=== PATIENT | female | born 1970 | race Caucasian/White ===

== ENCOUNTER 2016-09-29 11:24 | Observation (INO) | payer OTHER ==
[~2016-09-29] VITALS: Ht 162.6 cm; Wt 104.6 kg
--- NOTE | 2016-09-29 14:24 | DIAGNOSTIC IMAGING REPORT ---
PROCEDURE: XR CHEST 1 VIEW INDICATION: CHEST PAIN TECHNIQUE: Single view chest. 1204 hours COMPARISON: None. FINDINGS: Moderately enlarged heart with intact right-sided single lead subclavian pacemaker. No significant central vascular congestion. Thickening of the right minor fissure. Mild peribronchial thickening scattered bilaterally. No dense consolidation, effusion, or pneumothorax. Intact osseous structures. IMPRESSION: 1. Enlarged heart with pacemaker but no signs of acute CHF. 2. Mild peribronchial thickening, nonspecific. Correlate clinically.
--- NOTE | 2016-09-29 15:06 | ED CLINICAL REPORT ---
Clinical Report - Physicians/Mid Levels [facility] [address] [place] [address] 09/29/2016 11:28 Patient: CAREY HANSON Time Seen: 1130. Arrived- By ambulance. Historian- patient. HISTORY OF PRESENT ILLNESS Chief Complaint: CHEST PAIN. It is described as pressure and it is described as located in the left chest area and radiating to the left arm. At its maximum, severity described as severe. When seen in the E.D., severity described as severe. Modifying factors- worsened by exertion. Not relieved by anything. This started past few days and is still present. It was abrupt in onset and has been constant but is not gone now. Onset during rest. No nausea or vomiting. (no cough). She has had difficulty breathing and has experienced diaphoresis. No additional chest pain. Similar symptoms previously: Once. ( states she had a pace maker placed). Recent medical care: Not recently seen/assessed. REVIEW OF SYSTEMS No fever, chills, abdominal pain, black stools or difficulty with urination. No skin rash or bloody stools. All systems otherwise negative, except as recorded above. PAST HISTORY See nurses notes. Risk factors for DVT/pulmonary embolism- prior history of pulmonary embolism. Medications: Unknown. Allergies: Penicillins. SOCIAL HISTORY Smoker- current status unknown. No alcohol use or drug use. No recent travel. Is a local resident. ADDITIONAL NOTES The nursing notes have been reviewed. PHYSICAL EXAM Vital Signs: Oxygen saturation normal. Appearance: Alert. Oriented X3. Patient in mild distress. Eyes: Pupils equal, round and reactive to light. Eyes normal inspection. ENT: Ears normal. Nose normal. Pharynx normal. Neck: Normal inspection. Neck supple. No JVD. CVS: Normal heart rate and rhythm. Heart sounds normal. Pulses normal. Respiratory: No respiratory distress. Breath sounds normal. Chest nontender. No rales, rhonchi or wheezes. Abdomen: Soft and nontender. Bowel sounds normal. Skin: Skin warm and dry. Normal skin color. No rash. Normal skin turgor. Extremities: Extremities exhibit normal ROM. No lower extremity edema. Neuro: Oriented X 3. No motor deficit. No sensory deficit. LABS, X-RAYS, AND EKG EKG: Normal sinus rhythm. Rate: 87. Normal P waves. Normal SUSY. Normal QRS complex. Normal axis. Normal QT and QTc. Non-specific T wave inversion in lead I, aVL and V6. No ST elevation or depression. Prior EKG unavailable. The study has been interpreted contemporaneously by me. The study has been independently viewed by me. Artifact present. Laboratory Tests: UA-Culture if indicated: (YANETH: 09/29/2016 11:45) ( [facility] 09/29/2016 11:58) Final results Test Result Flag Units (Reference) URINE COLOR YELLOW URINE APPEARANCE CLEAR URINE GLUCOSE NEGATIVE (NEGATIVE) URINE BILIRUBIN NEGATIVE (NEGATIVE) URINE KETONE NEGATIVE (NEGATIVE) URINE SPECIFIC GRAVITY <= 1.005 L (1.010-1.030) URINE PH 6.0 (5.0-8.0) URINE PROTEIN NEGATIVE (NEGATIVE) URINE UROBILINOGEN 0.2 EU/dL (0.2-1.0) URINE NITRITE NEGATIVE (NEGATIVE) URINE BLOOD TRACE-INTACT (NEGATIVE) URINE LEUK ESTERASE NEGATIVE (NEGATIVE) URINE RBC RARE rbc/hpf (0-1) URINE WBC RARE wbc/hpf (0-1) URINE EPITHELIAL CELLS 0-1 EPI/hpf (0-5) URINE BACTERIA NONE SEEN (NONE SEEN) URINE COMMENT CULT NOT INDICATED URINE CULTURES ARE SET-UP BASED ON THE FOLLOWING CRITERIA:POSITIVE NITRITEPOSITIVE LEUKOCYTE ESTERASEGREATER THAN 10 WHITE BLOOD CELLSMODERATE (2+) OR GREATER BACTERIA Urine: (YANETH: 09/29/2016 11:45) ( [facility] 09/29/2016 11:54) Final results Test Result Flag Units (Reference) URINE NEGATIVE CBC w Diff: (YANETH: 09/29/2016 11:55) ( [facility] 09/29/2016 13:33) Final results Test Result Flag Units (Reference) WHITE BLOOD COUNT 7.1 K/uL (4.5-11.5) RED BLOOD COUNT 5.32 H M/uL (4.00-5.20) HEMOGLOBIN 12.1 gm/dL (12.0-16.0) HEMATOCRIT 38.5 % (36.0-46.0) MEAN CELL VOLUME 72 L fL (80-100) MEAN CORPUSCULAR HGB 23 L pg (26-34) MEAN CORPUSCULAR HGB CONC 31 g/dL (31-37) RED CELL DISTRIBUTION WIDTH 18.1 H % (11.6-14.8) PLATELET COUNT 268 K/uL (150-400) NEUTROPHIL % 71.0 % (50-75) LYMPH % 20.3 L % (25-40) MONO % 5.7 % (3-14) EOSINOPHIL % 1.7 % (0-4) BASOPHIL % 1.3 % (0-2) RBC MORPHOLOGY 2+ ANISOCYTOSIS~~2+ HYPOCHROMASIA~~RARE POLYCHROMASIA PT with INR: (YANETH: 09/29/2016 11:55) ( MsgRcvd 09/29/2016 12:12) Final results Test Result Flag Units (Reference) INR 0.9 (0.8-1.2) Low Intensity Therapy: INR 1.5-2.0 PT range 18.5-23.1Mod.Intensity Therapy: INR 2.0-3.0 PT range 23.1-31.5High Intensity Therapy: INR 2.5-3.5 PT range 27.4-35.5High Intensity Therapy 2: INR 3.0-4.0 PT range 31.5-39.3 D-DIMER QUANTITATIVE 0.42 ug/mLFEU (0.27-0.52) The primary value of this quantitative assay relates toits negative predictive value (i.e. exclusion) of pulmonaryembolism/deep vein thrombosis/DIC.Elevated levels of d-dimer may also occur with:, age, cancer, inflammation, liver disease,post-op, infection, hematoma, coronary disease, peripheralarteriopathy, bleeding disorders and thrombolytic treatment.Results should be correlated with other clinical andradiological data.Testing Methodology: Latex Immunoassay Urine Drug Screen: (YANETH: 09/29/2016 11:45) ( [facility] 09/29/2016 14:00) Final results Test Result Flag Units (Reference) AMPHETAMINE/METHAMPHETAMINE NEGATIVE (NEGATIVE) BARBITURATE NEGATIVE (NEGATIVE) BENZODIAZEPINE NEGATIVE (NEGATIVE) CANNABINOID POSITIVE H (NEGATIVE) COCAINE NEGATIVE (NEGATIVE) ECSTASY NEGATIVE (NEGATIVE) METHADONE NEGATIVE (NEGATIVE) OPIATE NEGATIVE (NEGATIVE) The urine drug screen is a qualitative screening test fordrug overdose and abuse. All screen results should beconsidered as presumptive.Drugs screened for are as follows:BenzodiazepinesCocaineAmphetamines/MetamphetaminesTHC (Tetrahydrocannabinol)OpiatesBarbituratesEcstasyMethadonePositive results are unconfirmed. For confirmation, notifythe lab for the specimen to be sent to the reference lab.All confirmations must be performed by a differentmethodology.The ingestion of natural herbal and plant productscontaining Ephedra/Ephedra metabolites can produce in urineone or more substances capable of cross reacting withamphetamine/methamphetamine immunoassays. These testsprovide a preliminary result only. A more specificalternative chemical method must be used to obtain aconfirmed analytical result. Troponin-I: (YANETH: 09/29/2016 14:00) ( [facility] 09/29/2016 14:32) Final results Test Result Flag Units (Reference) TROPONIN I 0.06 ng/mL (0.00-1.5) TROPONIN REFERENCE RANGE:<0.1 NEGATIVE0.1-1.5 INDETERMINANT>1.5 POSITIVE BNP: (YANETH: 09/29/2016 11:55) ( [facility] 09/29/2016 12:29) Final results Test Result Flag Units (Reference) B-TYPE NATRIURETIC PEPTIDE 663 H pg/ml (5-100) CMP: (YANETH: 09/29/2016 11:55) ( [facility] 09/29/2016 12:28) Final results Test Result Flag Units (Reference) GLUCOSE 110 mg/dL (70-110) BUN 12 mg/dL (7-18) CREATININE 1.0 mg/dL (0.6-1.3) Estimated GFR >60 mL/min Estimated GFR- >60 mL/min Note: Persistent reduction over 3 months in eGFR<60 mL/min/1.73 m2 defines CKD. Patients with eGFR values>=60 mL/min/1.73 m2 may also have CKD if evidence ofpersistent proteinuria. Additional information may be foundat [email or web address].org. SODIUM 137 mmol/L (136-145) POTASSIUM 4.2 mmol/L (3.5-5.1) CHLORIDE 102 mmol/L (98-107) CARBON DIOXIDE 26 mmol/L (21-32) CALCIUM 8.7 mg/dL (8.5-10.1) TOTAL PROTEIN 7.8 g/dL (6.4-8.2) ALBUMIN 3.5 g/dL (3.3-5.0) BILIRUBIN, TOTAL 0.4 mg/dL (0.0-1.0) ALKALINE PHOSPHATASE 123 H U/L (46-116) AST (SGOT) 18 U/L (15-37) ALT (SGPT) 19 U/L (12-78) TROPONIN I 0.05 ng/mL (0.00-1.5) TROPONIN REFERENCE RANGE:<0.1 NEGATIVE0.1-1.5 INDETERMINANT>1.5 POSITIVE . PROGRESS AND PROCEDURES Course of Care: Patient is a pleasant 46 show female presenting for evaluation of chest pain. Patient is a [employer] past medical history. At this time differential diagnosis is broad. Laboratory studies including EKG, chest x-ray, and urinalysis has been ordered. Patient is agreeable to the treatment plan. All questions have been answered. Also interrogate patient's cardiac device. Patient states that her cardiac device had one off earlier today. Patient had reported that she had cardiology follow-up at [facility]. When speaking with cardiology over at [facility], patient has not established care down there. Patient did havecardiac studies done including a Lexiscan which showed reversible anterior wall defect. This was ordered by the hospitalist. Unclear where patient had gotten cardiology follow-up. We were able to discover the patient had most of her cardiac here in [place]. Patient also had a stent placed there as well Including her cardiac device. Laboratory studies were significant for the findings above. Patient with normal d-dimer. Troponin is also normal. Patient with EKG does not show any signs of acute ischemia. The patient's cardiac device was interrogated. Patient had no significant recent events. Repeat troponin has been ordered as the patient's pain changed less than 8 hours ago. Repeat troponin is also noted to be normal. Because of the patient's unremarkable troponin however elevated BNP and findings of possible heart failure, patient will be admitted. Patient also with hypertensive emergency. Nitropaste was provided as well as IV metoprolol. Patient also reporting headache after the Nitropaste was given. Patient was treated for the headache with Dilaudid. Patient reports that the headache is similar to her headaches in the past. No focal neurological examinations. No concern for space-occupying lesion, subarachnoid hemorrhage, or more sinister etiology for the headache. discussed care with the hospitalist who will accept the patient. During patient's stay here in the emergency department, no available nursing staff was available for the patient. Patient was to be admitted to the intensive care unit. A nurse was available at around 7 PM this evening. Prior to patient's departure from the emergency department she is noted to be resting in bed and in no acute distress. Patient is agreeable to the treatment plan. All questions have been answered. Discussed with patient her diagnosis and plan of care. Alphonse from [email or web address]. Told RN that she "it wouldn't show anything." Clarified with rep about what exactly does this cardiac device do. States it won't record unless the heart rate goes over 180, otherwise it wouldn't show anything. patient reports she felt it go off and I would be concerned for a serious cardiac event. It is helpful to have that information when speaking with cardiology. Spoke with rep at 11:50am. States she should be here in less than an hour. Critical care performed (65 minutes). Time is exclusive of separately billable procedures. Time includes: direct patient care, patient reassessment, coordination of patient care, interpretation of data (laboratory data), review of patient's medical records, medical consultation and documentation of patient care. Disposition: Admitted to the Critical Care Unit. CLINICAL IMPRESSION hypertensive emergency, acute CHF exacerbation Chest pain, acute frontal headache, acute. (Electronically signed by Felipe Shelley Dr. 10/01/2016 15:03)
--- NOTE | 2016-09-29 15:06 | ED ORDER SUMMARY ---
..... Patient: CAREY HANSON [facility]: [id number] [place] [address] 46y, F Registration Date/Time: 09/29/2016 ORDER SHEET Weight: 99.7 kg (stated) Allergies: Penicillins GENERAL ORDERS: Chest 1V Urgent (11:34 09/29/2016 [place]) (Ack 11:53 WIouse ER Tech1) (12:03 KWilliams R.N.) (12:04 Ryder) Caseworker Intake (Continuous) (CP) (11:34 09/29/2016 [place]) (11:42 KWuna R.N.) CBC w Diff Urgent (11:09/29/2016 [place]) (Ack 11:53 WIouse ER Tech1) (12:03 Baldevams R.N.) CMP Urgent (11:09/29/2016 [place]) (Ack 11:53 WIouse ER Tech1) (12:03 KWilliams R.N.) UA-Culture if indicated Urgent (11:35 09/29/2016 [place]) (Ack 11:53 WIouse ER Tech1) (12:03 NATALEEillicole R.N.) PT with INR Urgent (11:09/29/2016 [place]) (Ack 11:53 WIouse ER Tech1) (12:03 Nancy R.N.) D-Dimer Urgent (11:35 09/29/2016 [place]) (Ack 11:53 WIouse ER Tech1) (12:03 KWilliams R.N.) Urine Urgent (11:35 09/29/2016 [place]) (Ack 11:53 WIouse ER Tech1) (12:03 KWilliams R.N.) Troponin-I Urgent (11:09/29/2016 [place]) (Ack 11:53 WIouse ER Tech1) (12:03 KWilliams R.N.) BNP Urgent (11:09/29/2016 [place]) (Ack 11:53 WIouse ER Tech1) (12:03 KWilliams R.NRosy) Pulse oximeter (11:35 09/29/2016 [place]) (11:42 Nancy RRosyN.) EKG - ER Stat (11:35 09/29/2016 [place]) (11:40 OHernandez) - (interogate pace maker) (11:42 09/29/2016 [place]) (Ack 12:01 WIouse ER Tech1) (13:06 Samreen R.NRosy) - (medical records from [facility]) (11:42 09/29/2016 [place]) (Ack 12:01 NHouse ER Tech1) (14:10 NHouse ER Tech1) Troponin-I (redraw at 1355) Urgent (12:32 09/29/2016 [place]) (Ack 12:35 WIouse ER Tech1) (14:10 WIouse ER Tech1) Urine Drug Screen Urgent (13:40 09/29/2016 [place]) (Ack 14:10 WIouse ER Tech1) (14:11 WIouse ER Tech1) MEDICATION ORDERS: Aspirin PO 243 mg (Do not crush or chew, NOW) (11:35 09/29/2016 [place]) (12:04 Nancy R.N.) NitroGLYCERIN Paste Topical 1 in. (NOW, to CW) (12:11 09/29/2016 [place]) (12:18 Samreen R.N.) Lovenox Subcut 80 mg (HIGH ALERT MEDICATION, NOW) (15:04 09/29/2016 [place]) (15:16 Samreen R.N.) IV FLUIDS: Morphine IV 4 mg (HIGH ALERT MEDICATION, NOW) (11:35 09/29/2016 [place]) (12:04 Nancy R.N.) IV Saline Lock (11:35 09/29/2016 [place]) (12:04 Nancy R.N.) Morphine IV 4 mg (HIGH ALERT MEDICATION, NOW) (12:26 09/29/2016 [place]) (12:35 Samreen R.N.) Metoprolol IV 5 mg (HIGH ALERT MEDICATION, NOW) (12:58 09/29/2016 [place]) (13:06 KKnebel R.N.) Dilaudid IV 1 mg (HIGH ALERT MEDICATION, NOW) (13:33 09/29/2016 [place]) (Ack 14:25 KKnebel R.N.) Dilaudid IV 2 mg (HIGH ALERT MEDICATION, NOW) (14:05 09/29/2016 [place]) (14:25 HIRAMnebel R.N.) Lasix IV 20 mg (NOW) (15:02 09/29/2016 [place]) (15:16 KKnefrancis R.N.) Dilaudid IV 1 mg (HIGH ALERT MEDICATION, NOW) (17:29 09/29/2016 [place]) (17:58 Samreen R.N.) Zofran IV 4 mg (NOW) (18:09 09/29/2016 [place]) (18:12 MWinterer R.N.) Dilaudid IV 2 mg (HIGH ALERT MEDICATION, NOW) (18:37 09/29/2016 [place]) (Ack 18:43 MWinterer R.N.) (18:44 SReitz R.N.) ORDER SHEET NOTES: [Electronically signed by Jessica Delacruz R.N. (21:53 09/29/2016)] [Electronically signed by Felipe Shelley Dr. (15:03 10/01/2016)] [Electronically locked/signed by Jessica Delacruz R.N. (21:53 09/29/2016)]
--- NOTE | 2016-09-29 15:06 | ED ORDER SUMMARY ---
..... Patient: CAREY HANSON OrderSheet [facility] VisitID: [id number] [place] [address] 46y, F Registration Date/Time: 09/29/2016 ORDER SHEET Weight: 99.7 kg (stated) Allergies: Penicillins GENERAL ORDERS: Chest 1V Urgent (11:34 09/29/2016 [place]) (Ack 11:53 NVouse ER Tech1) (12:03 KWilliams R.N.) (12:04 Ryder) Bracelet And Brooch Maker (Continuous) (CP) (11:34 09/29/2016 [place]) (11:42 KWuna R.N.) CBC w Diff Urgent (11:09/29/2016 [place]) (Ack 11:53 NVouse ER Tech1) (12:03 Baldevams R.N.) CMP Urgent (11:09/29/2016 [place]) (Ack 11:53 NVouse ER Tech1) (12:03 KWilliams R.N.) UA-Culture if indicated Urgent (11:35 09/29/2016 [place]) (Ack 11:53 NVouse ER Tech1) (12:03 NATALEEillicole R.N.) PT with INR Urgent (11:09/29/2016 [place]) (Ack 11:53 NVouse ER Tech1) (12:03 Nancy R.N.) D-Dimer Urgent (11:35 09/29/2016 [place]) (Ack 11:53 NVouse ER Tech1) (12:03 KWilliams R.N.) Urine Urgent (11:35 09/29/2016 [place]) (Ack 11:53 NVouse ER Tech1) (12:03 KWilliams R.N.) Troponin-I Urgent (11:09/29/2016 [place]) (Ack 11:53 NVouse ER Tech1) (12:03 KWilliams R.N.) BNP Urgent (11:09/29/2016 [place]) (Ack 11:53 NVouse ER Tech1) (12:03 KWilliams R.NRosy) Pulse oximeter (11:35 09/29/2016 [place]) (11:42 Nancy RRosyN.) EKG - ER Stat (11:35 09/29/2016 [place]) (11:40 OHernandez) - (interogate pace maker) (11:42 09/29/2016 [place]) (Ack 12:01 NVouse ER Tech1) (13:06 Samreen R.NRosy) - (medical records from [facility]) (11:42 09/29/2016 [place]) (Ack 12:01 NHouse ER Tech1) (14:10 NHouse ER Tech1) Troponin-I (redraw at 1355) Urgent (12:32 09/29/2016 [place]) (Ack 12:35 NVouse ER Tech1) (14:10 NVouse ER Tech1) Urine Drug Screen Urgent (13:40 09/29/2016 [place]) (Ack 14:10 NVouse ER Tech1) (14:11 NVouse ER Tech1) MEDICATION ORDERS: Aspirin PO 243 mg (Do not crush or chew, NOW) (11:35 09/29/2016 [place]) (12:04 Nancy R.N.) NitroGLYCERIN Paste Topical 1 in. (NOW, to CW) (12:11 09/29/2016 [place]) (12:18 Samreen R.N.) Lovenox Subcut 80 mg (HIGH ALERT MEDICATION, NOW) (15:04 09/29/2016 [place]) (15:16 Samreen R.N.) IV FLUIDS: Morphine IV 4 mg (HIGH ALERT MEDICATION, NOW) (11:35 09/29/2016 [place]) (12:04 Nancy R.N.) IV Saline Lock (11:35 09/29/2016 [place]) (12:04 Nancy R.N.) Morphine IV 4 mg (HIGH ALERT MEDICATION, NOW) (12:26 09/29/2016 [place]) (12:35 Samreen R.N.) Metoprolol IV 5 mg (HIGH ALERT MEDICATION, NOW) (12:58 09/29/2016 [place]) (13:06 KKnebel R.N.) Dilaudid IV 1 mg (HIGH ALERT MEDICATION, NOW) (13:33 09/29/2016 [place]) (Ack 14:25 KKnebel R.N.) Dilaudid IV 2 mg (HIGH ALERT MEDICATION, NOW) (14:05 09/29/2016 [place]) (14:25 HIRAMnebel R.N.) Lasix IV 20 mg (NOW) (15:02 09/29/2016 [place]) (15:16 KKnefrancis R.N.) Dilaudid IV 1 mg (HIGH ALERT MEDICATION, NOW) (17:29 09/29/2016 [place]) (17:58 Samreen R.N.) Zofran IV 4 mg (NOW) (18:09 09/29/2016 [place]) (18:12 MWinterer R.N.) Dilaudid IV 2 mg (HIGH ALERT MEDICATION, NOW) (18:37 09/29/2016 [place]) (Ack 18:43 MWinterer R.N.) (18:44 SReitz R.N.) ORDER SHEET NOTES: [Electronically signed by Jessica Delacruz R.N. (21:53 09/29/2016)] [Electronically signed by Felipe Shelley Dr. (15:03 10/01/2016)] [Electronically locked/signed by Jessica Delacruz R.N. (21:53 09/29/2016)]
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
--- NOTE | 2016-09-29 18:35 | History & Physical Report ---
Information Source Information Source: Self Reliability: Poor History Chief Complaint chest pain and headache History of Present Illness Patient is a 46 year old female presenting with chest pain. Patient had been in her usual state of health when she remarked that she has been having a difficult time controlling her blood pressure. Patient states that she has had a difficult time controlling her blood pressure for the past 16 years and that she has a litanny of diseases secondary to the persistent elevated blood pressure. Patient states that she checks her blood pressure every morngin and that it ranges from anywhere to 170s systolic to 200s systolic. Ther pressure according to her never gets better throughout the day despite taking medication. Patient additionally claimed that her hypertension today was more unusual in that she had chest pain associated with it. Patient has no other symptoms at the time of admission. Patient is a very poor historian and countinually deviates from the conversation we were having. Patient is otherwise hemodynamically stable. Patient History 1. Hypertensive crisis 2. Elevated troponin I level 3. Hypertension 4. Asthma 5. Migraines 6. Seizure disorder Social History Patient is currently unumployed. She lives in a rental unit with her boyfriend. She currently smokes half pack a day for the past 23 years. She drinks alochol very rarely and smokes marijuana. Family History Family history was reviewed; no changes noted. Medications and Allergies Medications Home Medications [facility]/codone acetaminophen 5/325 carvedilol 25 mg tab bid tizanididine 2 mg tab q8 h trazadone 100 mg q tab qhs Furosmide 40 mg tab daily Lisinopril 40 mg daily Current Medications Sig/Jeannie Start time Last Medication Dose Route Stop Time Status Admin Furosemide 40 MG DAILY 09/30 899 AC 09/30 PO 0844 Hydrochlorothiazide 12.5 MG DAILY 09/30 899 AC 09/30 PO 1115 Lisinopril 40 MG DAILY 09/30 09 AC 09/30 PO 0844 Ketorolac 30 MG Q6H PRN 09/30 0015 AC Tromethamine IV Acetaminophen/ 1 TAB Q4H PRN 09/29 2100 AC Hydrocodone Bitart PO Trazodone HCl 100 MG QHS 09/29 2100 AC 09/29 PO 2214 Carvedilol 25 MG BIDWC 09/30 1999 AC 09/29 PO 2053 Acetaminophen 650 MG Q4H PRN 09/29 1845 AC 09/29 PO 2052 Allergies Coded Allergies: Penicillins (Severe, 09/29/16) Uncoded Allergies: OLIVES (Severe, Anaphylaxis 09/29/16) Review of Systems Constitutional Weakness, Malaise. Denies: Fever, Chills, Sweats, Other. Eyes Denies: Pain, Vision Change, Conjunctival Inflammation, Eyelid Inflammation, Redness, Other. ENT Denies: Ear Pain, Ear Discharge, Nose Pain, Nasal Discharge, Nasal Congestion, Mouth Pain, Mouth Swelling, Throat Pain, Throat Swelling, Other. Respiratory Denies: Cough, Dry, SOB w/exertion, Wheezing, Hemoptysis, Pleuritic Pain, Sputum , Other. Cardiovascular Chest Pain. Denies: Palpitations, Orthopnea, PND, Edema, Light-headedness, Other. Gastrointestinal Denies: Nausea, Vomiting, Abdominal Pain, Diarrhea, Constipation, Melena, Hematochezia, Other. Genitourinary Denies: Dysuria, Frequency, Incontinence, Hematuria, Retention, Other. Musculoskeletal Back Pain. Denies: Neck Pain, Shoulder Pain, Arm Pain, Hand Pain, Leg Pain, Foot Pain, Other. Skin Denies: Rash, Lesions, Jaundice, Bruising, Other. Neurological Denies: Weakness, Numbness, Incoordination, Change in speech, Confusion, Seizures, Other. Physical Exam Vital Signs / I&Os Vital Signs Date Time Temp Pulse Resp B/P Pulse O2 O2 Flow FiO2 Ox Delivery Rate 09/30 1142 98.6 60 16 142/67 98 Room Air 06/05 0933 61 16 131/86 98 Room Air 06/05 0900 60 06/05 0800 60 15 140/94 94 Room Air 2.0 06/05 0727 97.7 63 18 122/73 99 Room Air 2.0 06/05 0721 2.0 06/05 0628 98.2 63 17 120/86 93 Room Air 06/05 0500 98.1 62 16 105/50 96 06/05 0400 66 16 126/82 93 06/05 0300 98.1 63 15 118/78 96 06/05 0200 98.1 73 17 108/63 92 Nasal 2.0 Cannula 06/05 0100 68 17 111/73 97 2.0 06/05 0000 70 17 139/85 95 Nasal 2.0 Cannula 06/04 2338 68 17 177/126 97 Nasal 2.0 Cannula 06/04 2300 98.8 85 18 180/118 92 Room Air 09/29 2200 98.8 80 17 157/84 96 Room Air 09/29 2100 97.7 81 17 170/94 91 Room Air 09/294 80 09/29 2030 2.0 09/29 2030 97.5 63 17 93 Room Air I&O 09/29 0800 09/29 1600 09/30 0000 Intake Total 0 Output Total 200 Balance -200 General Appearance Alert, Oriented X3, No acute distress HEENT Atraumatic, Moist mucous membranes Lungs Clear to auscultation Neck Supple, No JVD, No masses Cardiovascular Regular rate and rhythm, No murmurs, gallops, rubs Abdomen Soft, No tenderness Extremities No edema, Normal pulses, No tenderness Skin No Breakdown Neurological Normal gait, Normal speech, Sensation intact, Cranial nerves intact , No lateralizing signs Psych/Mental Status Mood normal LAB Results Laboratory Tests 09/29 09/29 06 1400 2150 0430 Chemistry Plasma Sodium (136 - 145 mmol/L) 137 Plasma Potassium (3.5 - 5.1 mmol/L) 4.6 Plasma Chloride (98 - 107 mmol/L) 100 CO2 (Enzymatic) (21 - 32 mmol/L) 29 BUN (7 - 18 mg/dL) 21 Creatinine (0.6 - 1.3 mg/dL) 1.2 Est GFR ( Amer) (mL/min) >60 Est GFR (Non-Af Amer) (mL/min) 51.40 Glucose (70 - 110 mg/dL) 97 Plasma Calcium (8.5 - 10.1 mg/dL) 8.9 Plasma Magnesium (1.8 - 2.4 mg/dL) 2.0 Total Bilirubin (0.0 - 1.0 mg/dL) 0.4 AST (15 - 37 U/L) 16 ALT (12 - 78 U/L) 18 Alkaline Phosphatase (46 - 116 U/L) 100 Troponin (0.00 - 1.5 ng/mL) 0.06 <0.05 Total Protein (6.4 - 8.2 g/dL) 6.6 Albumin (3.3 - 5.0 g/dL) 3.2 Hematology WBC (4.5 - 11.5 K/uL) 8.2 RBC (4.00 - 5.20 M/uL) 4.84 Hgb (12.0 - 16.0 gm/dL) 10.9 Hct (36.0 - 46.0 %) 35.4 MCV (80 - 100 fL) 73 MCH (26 - 34 pg) 23 RDW (11.6 - 14.8 %) 18.0 Neut % (Auto) (50 - 75 %) 71.0 Lymph % (Auto) (25 - 40 %) 20.8 Bennett % (Auto) (3 - 14 %) 6.6 Eos % (Auto) (0 - 4 %) 1.2 Baso % (Auto) (0 - 2 %) 0.4 Plt Count, EDTA (150 - 400 K/uL) 226 PUBS MCHC (31 - 37 g/dL) 31 Toxicology Valproic Acid (50.0 - 150.0 ug/mL) < 3.0 Microbiology Date/Time Procedure - Status Source Growth 09/29 2355 MRSA Screen - RECD NASAL Assessment and Plan Problem List 1. Hypertensive crisis Plan - pt presented with a blood pressure of 220/130 - pt was treated with beta blockers and luciana inhibitor - pt was placed on her home medication on the floor with hctz 12.6 mg - pts blood pressure throughout the night was very well controlled - will continue with this dose and consider discharging in the am 2. Elevated troponin I level Plan - pt has a minimally elevated troponin level - most likely from cardiac stress due to elevated blood pressure - will continue to trend - [facility] ekg was normal sinus rythym 3. Hypertension Plan - will resume home meds - refer to above 4. Asthma Plan - pt claims to have asthma however she is not placed on any treatments in the past - will continue to monitor breathing status 5. Seizure disorder Plan - pt cliams to have a seizure disorder - no pharmacy can verify the claims that she takes depakote for seizures - will hold and monitor further
[2016-09-29 21:00] VITALS: BP 170/94
[2016-09-29 22:00] VITALS: BP 157/84
[2016-09-29 23:00] VITALS: BP 180/118; BP 1801/11
[2016-09-29] MEDS ORDERED: DEPAKOTE ER250 MG PO ×2 (23:32→23:34)
[2016-09-29] MEDS ORDERED: VICODIN EQUIVAL1 TAB PO (23:35)
[2016-09-29 23:38] VITALS: BP 177/126
[2016-09-30] VITALS (11 sets, daily range): BP systolic 98–142; BP diastolic 50–94
[2016-09-30] MEDS ORDERED: HYDROCHLOROTH12.5 MG PO (12:34)
--- NOTE | 2016-09-30 12:35 | Provider's Discharge Care Plan ---
Problem, Goal, Plan Problem List 1. Hypertension Instructions: Take meds as directed, Stop smoking 2. Migraines Instructions: Take meds as directed 3. Seizure disorder
--- NOTE | 2016-09-30 12:35 | Provider's Discharge Care Plan ---
Problem, Goal, Plan Problem List 1. Hypertension Instructions: Take meds as directed, Stop smoking 2. Migraines Instructions: Take meds as directed 3. Seizure disorder
--- NOTE | 2016-10-01 15:04 | ED MED RECONCILIATION SUMMARY ---
Patient: CAREY HANSON Medication Reconciliation Report [facility] VisitID: [id number] [address] [place] [address] 46y, F Registration Date/Time: 09/29/2016 Weight: 99.7 kg Height/Length: 64 in. BMI: 37.8 ALLERGIES: Penicillins The patient's Home Medications are listed below: THE FOLLOWING MEDICATIONS NEED TO BE RECONCILED: AmLODIPine Besylate Oral (10 mg) 1 tablet, daily Asmanex 120 Metered Doses Inhalation Aspirin Oral (81 mg) 1 tablet Carvedilol 12.5 mg 2 tabs, 2x a day Diclofenac topical gel, 4x a day Divalproex Sodium Oral (250 mg), 3 tab in AM2 tas at lunch and2 tabs at night Docusate Sodium Oral (100 mg) 1 capsule, 2x daily Docusate Sodium Oral Furosemide 40mg , daily Iron Oral 150 mg take 2 tabs, daily Lidocaine film Lisinopril Oral 40 mg, daily Nitrostat Sublingual Omeprazole Oral 20 mg, 2x a day Ondansetrom 8mg , 3x a day Prazosin HCl Oral (2 mg) 1 capsule, at bedtime RisperiDONE Oral (1 mg) 1 tablet, 2x a day TiZANidine HCl Oral (2 mg) 1 tablet, 3x a day Trazodone 100mg, at bedtime Vicodin Oral 7.5 mg, q 4 hrs The source(s) of the original Home Medication information: patient The following Medications were given to the patient in the Emergency Department: Aspirin [PO] PO 243 mg, administered: 09/29/2016 11:49:00 AM Morphine [IVP] IVP 4 mg, administered: 09/29/2016 11:54:00 AM NITROGLYCERIN PASTE [TOPICAL] Topical 1 in., administered: 09/29/2016 12:18:00 PM Morphine [IVP] IVP 4 mg, administered: 09/29/2016 12:35:00 PM Metoprolol [IVP] IVP 5 mg, administered: 09/29/2016 1:06:00 PM Dilaudid [IVP] IVP 2 mg, administered: 09/29/2016 2:25:00 PM Lasix [IVP] IVP 20 mg, administered: 09/29/2016 3:16:00 PM Lovenox [Subcutaneous] Subcutaneous 80 mg, administered: 09/29/2016 3:16:00 PM Dilaudid [IVP] IVP 1 mg, administered: 09/29/2016 5:58:00 PM Zofran [IVP] IVP 4 mg, administered: 09/29/2016 6:12:00 PM Dilaudid [IVP] IVP 2 mg, administered: 09/29/2016 6:44:00 PM The following Medications were prescribed to the patient: None.
--- NOTE | 2016-10-01 15:04 | ED MAR SUMMARY ---
..... Medication Administration Record [facility] [address] [place] [address] Patient: CAREY HANSON Visit ID: [id number] 46y, F Weight: 99.7 kg Height/Length: 64 in BMI: 37.8 ALLERGIES: Penicillins Given 11:49 09/29/2016 Zaheer Pollock R.N. Medication Administered: ASPIRIN [PO], Dose: 243 mg Tablets PO. Medication Ordered: Aspirin PO 243 mg (Do not crush or chew, NOW). Given 11:54 09/29/2016 Zaheer Pollock R.N. Medication Administered: MORPHINE [IVP], Dose: 4 mg IVP over 2 minute(s), Site: #1 left AC. Medication Ordered: Morphine IV 4 mg (HIGH ALERT MEDICATION, NOW). Given 12:18 09/29/2016 Jessica Delacruz R.N. Medication Administered: NITROGLYCERIN PASTE [TOPICAL], Dose: 1 in. Paste Topical. Medication Ordered: NitroGLYCERIN Paste Topical 1 in. (NOW, to CW). Given 12:35 09/29/2016 Jessica Delacruz R.N. Medication Administered: MORPHINE [IVP], Dose: 4 mg IVP over 2 minute(s), Site: #1 left AC. Medication Ordered: Morphine IV 4 mg (HIGH ALERT MEDICATION, NOW). Given 13:06 09/29/2016 Jessica Delacruz R.N. Medication Administered: METOPROLOL [IVP] (METOPROLOL TARTRATE), Dose: 5 mg IVP over 4 minute(s), Site: #1 left AC. Medication Ordered: Metoprolol IV 5 mg (HIGH ALERT MEDICATION, NOW). Given 14:25 09/29/2016 Jessica Delacruz R.N. Medication Administered: DILAUDID [IVP] (HYDROMORPHONE HCL PF), Dose: 2 mg IVP over 2 minute(s), Site: #1 left AC. Medication Ordered: Dilaudid IV 2 mg (HIGH ALERT MEDICATION, NOW). Given 15:16 09/29/2016 Jessica Delacruz R.N. Medication Administered: LASIX [IVP], Dose: 20 mg IVP over 2 minute(s), Site: #1 left AC. Medication Ordered: Lasix IV 20 mg (NOW). Given 15:16 09/29/2016 Jessica Delacruz RRosyN. Medication Administered: LOVENOX [SUBCUTANEOUS] (ENOXAPARIN SODIUM), Dose: 80 mg Subcutaneous. Medication Ordered: Lovenox Subcut 80 mg (HIGH ALERT MEDICATION, NOW). Given 17:58 09/29/2016 Jessica Delacruz R.N. Medication Administered: DILAUDID [IVP] (HYDROMORPHONE HCL PF), Dose: 1 mg IVP over 2 minute(s), Site: #1 left AC. Medication Ordered: Dilaudid IV 1 mg (HIGH ALERT MEDICATION, NOW). Given 18:12 09/29/2016 Kimmy Marie R.N. Medication Administered: ZOFRAN [IVP] (ONDANSETRON HCL), Dose: 4 mg IVP over 1 minute(s), Site: #1 left AC. Medication Ordered: Zofran IV 4 mg (NOW). Given 18:44 09/29/2016 Katelyn Oden RRosyN. Medication Administered: DILAUDID [IVP] (HYDROMORPHONE HCL PF), Dose: 2 mg IVP over 2 minute(s), Site: #1 left AC. Medication Ordered: Dilaudid IV 2 mg (HIGH ALERT MEDICATION, NOW).
--- NOTE | 2016-10-01 15:04 | ED MED RECONCILIATION SUMMARY ---
Patient: CAREY HANSON Medication Reconciliation Report Formerly [facility] VisitID: [id number] [address] [place] [address] 46y, F Registration Date/Time: 09/29/2016 Weight: 99.7 kg Height/Length: 64 in. BMI: 37.8 ALLERGIES: Penicillins The patient's Home Medications are listed below: THE FOLLOWING MEDICATIONS NEED TO BE RECONCILED: AmLODIPine Besylate Oral (10 mg) 1 tablet, daily Asmanex 120 Metered Doses Inhalation Aspirin Oral (81 mg) 1 tablet Carvedilol 12.5 mg 2 tabs, 2x a day Diclofenac topical gel, 4x a day Divalproex Sodium Oral (250 mg), 3 tab in AM2 tas at lunch and2 tabs at night Docusate Sodium Oral (100 mg) 1 capsule, 2x daily Docusate Sodium Oral Furosemide 40mg , daily Iron Oral 150 mg take 2 tabs, daily Lidocaine film Lisinopril Oral 40 mg, daily Nitrostat Sublingual Omeprazole Oral 20 mg, 2x a day Ondansetrom 8mg , 3x a day Prazosin HCl Oral (2 mg) 1 capsule, at bedtime RisperiDONE Oral (1 mg) 1 tablet, 2x a day TiZANidine HCl Oral (2 mg) 1 tablet, 3x a day Trazodone 100mg, at bedtime Vicodin Oral 7.5 mg, q 4 hrs The source(s) of the original Home Medication information: patient The following Medications were given to the patient in the Emergency Department: Aspirin [PO] PO 243 mg, administered: 09/29/2016 11:49:00 AM Morphine [IVP] IVP 4 mg, administered: 09/29/2016 11:54:00 AM NITROGLYCERIN PASTE [TOPICAL] Topical 1 in., administered: 09/29/2016 12:18:00 PM Morphine [IVP] IVP 4 mg, administered: 09/29/2016 12:35:00 PM Metoprolol [IVP] IVP 5 mg, administered: 09/29/2016 1:06:00 PM Dilaudid [IVP] IVP 2 mg, administered: 09/29/2016 2:25:00 PM Lasix [IVP] IVP 20 mg, administered: 09/29/2016 3:16:00 PM Lovenox [Subcutaneous] Subcutaneous 80 mg, administered: 09/29/2016 3:16:00 PM Dilaudid [IVP] IVP 1 mg, administered: 09/29/2016 5:58:00 PM Zofran [IVP] IVP 4 mg, administered: 09/29/2016 6:12:00 PM Dilaudid [IVP] IVP 2 mg, administered: 09/29/2016 6:44:00 PM The following Medications were prescribed to the patient: None.
--- NOTE | 2016-10-01 15:04 | ED DISCHARGE INSTRUCTIONS ---
Patient: CAREY HANSON General Instructions [facility] VisitID: [id number] [address] [place] [address] 46y, F Registration Date/Time: 09/29/2016 hypertensive emergency, acute CHF exacerbation Chest pain, acute frontal headache, acute. (Electronically signed by Felipe Shelley Dr. 10/01/2016 15:03)
--- NOTE | 2016-10-01 15:04 | ED DISCHARGE INSTRUCTIONS ---
Patient: CAREY HANSON General Instructions [facility] VisitID: [id number] [address] [place] [address] 46y, F Registration Date/Time: 09/29/2016 hypertensive emergency, acute CHF exacerbation Chest pain, acute frontal headache, acute. (Electronically signed by Felipe Shelley Dr. 10/01/2016 15:03)
--- NOTE | 2016-10-01 15:04 | ED MAR SUMMARY ---
..... Medication Administration Record [facility] [address] [place] [address] Patient: CAREY HANSON Visit ID: [id number] 46y, F Weight: 99.7 kg Height/Length: 64 in BMI: 37.8 ALLERGIES: Penicillins Given 11:49 09/29/2016 Zaheer Pollock R.N. Medication Administered: ASPIRIN [PO], Dose: 243 mg Tablets PO. Medication Ordered: Aspirin PO 243 mg (Do not crush or chew, NOW). Given 11:54 09/29/2016 Zaheer Pollock R.N. Medication Administered: MORPHINE [IVP], Dose: 4 mg IVP over 2 minute(s), Site: #1 left AC. Medication Ordered: Morphine IV 4 mg (HIGH ALERT MEDICATION, NOW). Given 12:18 09/29/2016 Jessica Delacruz R.N. Medication Administered: NITROGLYCERIN PASTE [TOPICAL], Dose: 1 in. Paste Topical. Medication Ordered: NitroGLYCERIN Paste Topical 1 in. (NOW, to CW). Given 12:35 09/29/2016 Jessica Delacruz R.N. Medication Administered: MORPHINE [IVP], Dose: 4 mg IVP over 2 minute(s), Site: #1 left AC. Medication Ordered: Morphine IV 4 mg (HIGH ALERT MEDICATION, NOW). Given 13:06 09/29/2016 Jessica Delacruz R.N. Medication Administered: METOPROLOL [IVP] (METOPROLOL TARTRATE), Dose: 5 mg IVP over 4 minute(s), Site: #1 left AC. Medication Ordered: Metoprolol IV 5 mg (HIGH ALERT MEDICATION, NOW). Given 14:25 09/29/2016 Jessica Delacruz R.N. Medication Administered: DILAUDID [IVP] (HYDROMORPHONE HCL PF), Dose: 2 mg IVP over 2 minute(s), Site: #1 left AC. Medication Ordered: Dilaudid IV 2 mg (HIGH ALERT MEDICATION, NOW). Given 15:16 09/29/2016 Jessica Delacruz R.N. Medication Administered: LASIX [IVP], Dose: 20 mg IVP over 2 minute(s), Site: #1 left AC. Medication Ordered: Lasix IV 20 mg (NOW). Given 15:16 09/29/2016 Jessica Delacruz RRosyN. Medication Administered: LOVENOX [SUBCUTANEOUS] (ENOXAPARIN SODIUM), Dose: 80 mg Subcutaneous. Medication Ordered: Lovenox Subcut 80 mg (HIGH ALERT MEDICATION, NOW). Given 17:58 09/29/2016 Jessica Delacruz R.N. Medication Administered: DILAUDID [IVP] (HYDROMORPHONE HCL PF), Dose: 1 mg IVP over 2 minute(s), Site: #1 left AC. Medication Ordered: Dilaudid IV 1 mg (HIGH ALERT MEDICATION, NOW). Given 18:12 09/29/2016 Kimmy Marie R.N. Medication Administered: ZOFRAN [IVP] (ONDANSETRON HCL), Dose: 4 mg IVP over 1 minute(s), Site: #1 left AC. Medication Ordered: Zofran IV 4 mg (NOW). Given 18:44 09/29/2016 Ktaelyn Oden RRosyN. Medication Administered: DILAUDID [IVP] (HYDROMORPHONE HCL PF), Dose: 2 mg IVP over 2 minute(s), Site: #1 left AC. Medication Ordered: Dilaudid IV 2 mg (HIGH ALERT MEDICATION, NOW).
== END 2016-09-30 15:15 | disposition home or self-care (01) ==
LOC: ED SRH 11:24 → TRANS SRH 15:17 → CC SRH 20:30
PROVIDERS: ADMIT Student in an Organized Health Care Education/Training Program
DX: I16.9 Hypertensive crisis, unspecified (principal); R07.9 Chest pain, unspecified; I11.0 Hypertensive heart disease with heart failure; I50.33 Acute on chronic diastolic (congestive) heart failure; R74.8 Abnormal levels of other serum enzymes; R51 Headache; I25.10 Atherosclerotic heart disease of native coronary artery without angina pectoris; Z95.5 Presence of coronary angioplasty implant and graft; G40.909 Epilepsy, unspecified, not intractable, without status epilepticus; F17.210 Nicotine dependence, cigarettes, uncomplicated; Z79.82 Long term (current) use of aspirin; Z86.711 Personal history of pulmonary embolism
CPT/HCPCS: 90004; 90074; 90100; 90616; 91285; 91320; 91556; 92132; 92720; 92760; 92761; 92762; 92763; 92764; 92765; 92766; 92767; 93070; 94060; 95059